=== PATIENT | male | born 1950 | race Two or more races ===

== ENCOUNTER 2023-07-16 14:50 | Emergency (ER) | payer MEDICARE ==
[~2023-07-16] VITALS: Ht 177.8 cm; Wt 82.0 kg
[2023-07-16 14:57] VITALS: BP 155/85; PULSE 81; RESP 18; TEMP 98.2; O2SAT 96
== END 2023-07-16 18:26 | disposition left against medical advice (07) ==
LOC: ER 14:50
DX: R53.1 Weakness (principal); Z86.73 Personal history of transient ischemic attack (TIA), and cerebral infarction without residual deficits
CPT/HCPCS: 71045; 99283